=== PATIENT | female | born 1980 | race Asian ===

== ENCOUNTER → 2024-06-19 | Outpatient (CLI) | payer BC, SELFPAY ==
--- NOTE | 2024-06-19 12:21 | XR_ITS ---
Examination: Transvaginal ultrasound of the pelvis, complete Technique: Transvaginal sonographic images pelvis performed using rajput scale imaging Exam date and time: June 19, 2024 1316 hours INDICATIONS: Worsening left pelvic pain beginning 3 days ago FINDINGS: Uterus 9.9 x 7.0 x 6.5 cm retroverted Uterine body area of fibroid degeneration 3.5 x 1.6 x 3.1 cm Endometrial stripe 10 mm Right ovary 4.1 x 1.9 x 2.2 cm arterial flow, 22 x 18 mm cyst Left ovary 3.1 x 1.7 x 2.0 cm arterial flow IMPRESSION: 3.5 x 1.6 x 3.1 cm uterine body area of likely fibroid degeneration, recommend 6 month follow-up transvaginal pelvic sonography.
--- NOTE | 2024-06-19 12:21 | XR_ITS ---
Examination: Pelvic ultrasound, transabdominal, complete Technique: Transabdominal ultrasound of the pelvis performed using grayscale imaging Date and time of exam: June 19, 2024 1309 hours INDICATIONS: Worsening pelvic pain beginning 3 days ago intermittent pelvic pain one year FINDINGS: Uterus 10.8 x 7.1 x 6.4 cm retroverted Uterine body mass 2.7 x 2.0 x 2.3 cm Endometrial stripe 25 mm Right ovary 4.0 x 2.5 x 2.7 cm arterial flow, 19 x 13 x 15 mm cyst Left ovary 3.6 x 2.3 x 2.4 cm arterial flow IMPRESSION: Uterine body area of likely fibroid degeneration 2.7 x 2.0 x 2.3 cm, recommend 6 month follow-up transvaginal pelvic sonography
[2024-06-19 14:37] LABS: Basophils % (Auto) 0 % (0-2.5); Eosinophils # (Auto) 0.1 Thou/mm3 (0.0-0.5); Eosinophils % (Auto) 2 % (0-10); Hematocrit 35.2 % (36.0-46.0); Hemoglobin 12.2 g/dL (12.0-16.0); Immature Granulocytes % (Auto) 0 % (0-0); Immature Granulocytes Auto 0.01 Thou/mm3 (0.00-0.00); Lymphocytes # (Auto) 1.7 Thou/mm3 (1.0-4.8); Lymphocytes % (Auto) 27 % (10-50); Mean Corpuscular HGB Conc 34.7 g/dl (31.0-37.0); Mean Corpuscular Hemoglobin 30.9 pg (25.0-35.0); Mean Corpuscular Volume 89 fL (80-100); Monocytes # (Auto) 0.5 Thou/mm3 (0.0-0.8); Monocytes % (Auto) 8 % (0-12); Neutrophils # (Auto) 4.1 Thou/mm3 (1.8-7.7); Neutrophils % (Auto) 63 % (37-80); Nucleated Red Blood Cell % 0 /100 WBC (0); Platelet Count 306 Thou/mm3 (140-440); RDW Standard Deviation 38.4 fL (36.4-46.3); Red Blood Count 3.95 Miln/mm3 (4.00-5.20); White Blood Count 6.5 Thou/mm3 (3.6-11.0)
[2024-06-19 14:48] LABS: Glucose Estimated Average 97 mg/dL (80-131)
[2024-06-19 14:54] LABS: Alanine Aminotransferase 19 U/L (10-49); Albumin, Serum 4.4 gm/dL (3.5-5.0); Albumin/Globulin Ratio 1.4 (1.2-2.2); Alkaline Phosphatase 62 U/L (46-116); Anion Gap 8 (7-16); Aspartate Amino Transferase 21 U/L (0-34); BUN/Creatinine Ratio 11 Ratio (12-20); Bilirubin,Total 0.5 mg/dL (0.3-1.2); Blood Urea Nitrogen 8 mg/dL (9-23); Calcium 9.4 mg/dL (8.3-10.6); Calcium (Corrected) 9.4 mg/dL (8.5-10.1); Carbon Dioxide 27.1 mMol/L (20.0-31.0); Cardiac Risk Estimate 4.6 RATIO (3.7-5.6); Chloride 97 mMol/L (98-107); Cholesterol 238 mg/dL (132-200); Creatinine (Component) 0.7 mg/dL (0.6-1.3); Free T4 (Free Thyroxine) 1.47 ng/dL (0.89-1.76); Globulin 3.1 gm/dL (2.3-3.5); Glucose 84 mg/dL (74-106); HDL Cholesterol 52 mg/dL (40-60); LDL Cholesterol,Calculated 170 mg/dL (0-130); Osmolality,Calculated 261 (275-295); Potassium 3.9 mMol/L (3.4-5.1); Sodium 132 mMol/L (136-145); Total Protein 7.5 gm/dL (5.7-8.2); Triglycerides 81 mg/dL (30-150); eGFR > 60 See Note
[2024-06-20 09:06] LABS: Chlamydia trachomatis PCR Negative (Not Detect); Neisseria Gonorrhoeae DNA PCR Negative (Not Detect); Trichomonas Negative (Negative)
[2024-07-09 09:09] LABS: Direct LDL* 174 mg/dL (<100)
== END | disposition home or self-care (01) ==
LOC: COPL 12:14
PROVIDERS: PCP Nurse Practitioner Family; Referring Provider Nurse Practitioner Family; Visit Provider Radiology Diagnostic Radiology
DX: R10.2 Pelvic and perineal pain (principal); Z13.1 Encounter for screening for diabetes mellitus; Z13.29 Encounter for screening for other suspected endocrine disorder; Z13.220 Encounter for screening for lipoid disorders; Z12.4 Encounter for screening for malignant neoplasm of cervix
CPT/HCPCS: 36415; 76830; 76856; 80053; 80061; 83036; 83721; 84439; 84443; 85025; 87491; 87591; 87661